=== PATIENT | female | born 1955 | race Caucasian/White ===

== ENCOUNTER → 2024-04-05 17:58 | Outpatient (REF) | payer OTHER, SELFPAY | LOC: WDC 17:58 | PROVIDERS: ATTENDING PHYSICIAN Oral & Maxillofacial Surgery; FAMILY PHYSICIAN Family Medicine | DX: Z12.31 Encounter for screening mammogram for malignant neoplasm of breast (principal) | CPT/HCPCS: 77063; 77067 ==

== ENCOUNTER → 2024-10-06 07:08 | Outpatient (REF) | payer BC, SELFPAY | LOC: HWRAD 07:08 | PROVIDERS: ATTENDING PHYSICIAN Surgery; FAMILY PHYSICIAN Family Medicine | DX: R19.09 Other intra-abdominal and pelvic swelling, mass and lump (principal) | CPT/HCPCS: 76882 ==

== ENCOUNTER → 2025-04-12 17:13 | Outpatient (REF) | payer BC, SELFPAY | LOC: WDC 17:13 | PROVIDERS: ATTENDING PHYSICIAN Obstetrics & Gynecology; FAMILY PHYSICIAN Family Medicine | DX: Z12.31 Encounter for screening mammogram for malignant neoplasm of breast (principal) | CPT/HCPCS: 77063; 77067 ==

== ENCOUNTER 2025-06-11 11:39 | Emergency (ER) | payer BC, SELFPAY ==
[2025-06-11 11:40] VITALS: BP 176/89
[2025-06-11 11:58] VITALS: BP 134/65
[2025-06-11 12:00] VITALS: BP 130/76
--- NOTE | 2025-06-11 12:08 | ED.GENMED ---
History of Present Illness
General
Chief Complaint: Heart Rate Problem
Source: patient
Exam Limitations: none
Time Seen by Provider: 06/11/25 11:57
History of Present Illness
History of Present Illness:
69yoF with a history of hypertension and lichen planopilaris presenting for evaluation of palpitations. She reports feeling like her heart is skipping beats for the past week. The sensation makes her feel like she has to cough. Symptoms were
stronger today. She has a family history of heart attacks and atrial fibrillation and wanted to come to the ED to be evaluated. She is otherwise asymptomatic and denies any chest pain, shortness of breath, dizziness, syncope. No caffeine use and
she drinks alcohol occasionally. She reports being under extreme stress at work recently. She is a project internship at an engineering firm.
Phy Exam
General Physical Exam
General Presentation: well appearing and no apparent distress
General Skin: warm and dry
General Habitus: normal
General Mental: alert
ENT Exam
ENT Exam: normocephalic
Cardiovascular Exam
Cardiovascular Exam: regular rate/rhythm, no edema and no murmur
Pulmonary Exam
Pulmonary Exam: lungs clear, no respiratory distress, no rales, no crackles, no rhonchi and no wheezing
Neurological Exam
Neurological Exam: alert
Rina Coma Scale
Eye Opening: Spontaneous
Verbal Response: Oriented
Motor Response: Obeys Commands
GCS Total Score: 15
Skin Exam
Skin Exam: normal color and warm/dry
Psychiatric Exam
Psychiatric Exam: anxious
Course
Orders/Labs/Results
Orders:
Orders
06/11/25 11:43
EKG [Electrocardiogram (*1)] Urgent
Reason for Study: Palpitations
EKG- Treatment ONCE
06/11/25 12:07
Cardiac Monitoring- Treatment ONCE
Complete Blood Count/With Diff Urgent
Comprehensive Metabolic Panel Urgent
Magnesium Urgent
TSH Reflex To Free T4 Urgent
Troponin I Urgent
06/11/25 13:08
Add On- LAB Urgent
Tests Added?: TSH, reflex to T4
Abnormal Lab Results
06/11/25
12:07
Carbon Dioxide 32 H mmol/L
(22-30)
Glucose 108 H mg/dl
(70-99)
06/11/25 12:07
06/11/25 12:07
Vital Signs
Initial and Last Documented VS:
Initial Vital Signs
Temp Pulse Resp BP Pulse Ox
97.9 F 92 16 176/89 97
06/11/25 11:40 06/11/25 11:40 06/11/25 11:40 06/11/25 11:40 06/11/25 11:40
Last Documented Vital Signs
Temp Pulse Resp BP Pulse Ox
97.9 F 56 12 125/54 96
06/11/25 11:40 06/11/25 15:00 06/11/25 15:00 06/11/25 15:00 06/11/25 15:00
MDM/Problems Addressed
Differential Diagnosis Includes:
69yoF here with palpitations x 1 week. Feels like heart is skipping beats. Also under a lot of stress recently. No CP/SOB. She is hypertensive in triage with otherwise stable vitals. Scattered PACs noted on monitor during initial exam which are
correlating with her symptoms. Remainder of exam is reassuring. Differential diagnosis includes but is not limited to: PACs/PVCs, arrhythmia, thyroid dysfunction, electrolyte abnormality
Initial ED plan: Triage EKG shows NSR without ectopy or ischemic changes. Check cardiac labs, magnesium, and TSH.
*Pulse Oximetry
SaO2: 97
Oxygen Mode of Delivery: Room air
Patient hypoxic: no
*EKG
Interpreted by ED Provider?: Yes
EKG Intrepretation Date: 06/11/25
Heart Rate: 78
Rate: normal
Rhythm: sinus
[place]: normal axis
Interval: normal interval
QRS Pattern: normal QRS
Ischemia: no ischemia
*Critical Care Note
Total Time (30-74mins, 75-104mins- exclusive of procedures): Not Applicable
Update Note
Update Note:
Labs unremarkable including normal electrolytes, TSH, and troponin. No telemetry events throughout ED stay. On reassessment, patient states she is feeling significantly improved and palpitations have lessened. Normal sinus rhythm noted on monitor
with heart rate in the 50-60 range. Patient stable for discharge. Patient questioning whether she should see a case coordinator. Contact information for cardiology provided and she was also advised to follow-up with her PCP. Discussed possible need
for outpatient Holter monitor. ED return precautions reviewed and she was discharged stable condition.
ED Attending Note
-
Portions of this chart may have been created with voice recognition software.� Occasional wrong word or��sound alike� substitutions may have occurred due to the inherent limitations of voice recognition software.
Discharge Plan
Departure
Patient Disposition: Home (Routine Discharge)
Date of Disposition: 06/11/25
Time of Disposition: 14:43
Patient with high blood pressure during this ER visit?: No
Discharge Problem:
Palpitations, PAC (premature atrial contraction)
Instructions: Palpitations (DC)
Referrals:
Alma Delia Barnett DO [Active, Cardiology]
Suman Rabago MD [Family Provider, Family Practice]
Activity Restrictions/Additional Instructions:
Please call your family doctor on Friday to schedule a follow-up appointment and discuss outpatient Holter monitor. Contact information for a case coordinator is provided below.
Return to the ER with any new or worsening symptoms.
Interventions
Interventions:
*Risk Screen - Suicide Last Done: 06/11/25 12:06
*General Assessment Last Done: 06/11/25 11:40
*Neglect/Abuse Screening Last Done: 06/11/25 11:40
*ED COVID-19 Vaccine History Last Done: 06/11/25 11:40
*ED Influenza Vaccine History Last Done: 06/11/25 11:40
*Nursing Disposition Last Done: 06/11/25 15:18
ED- Cardiac Assessment Last Done: 06/11/25 12:05
ED- Pulmonary Assessment Last Done: 06/11/25 12:05
Discharge Date and Time
Discharge Date/Time: 06/11/25 15:21
Print Language: MACEDONIAN
[2025-06-11 12:13] VITALS: BMI 22.3
[2025-06-11 12:22] LABS: Hematocrit 44.3 % (37.0-47.0); Hemoglobin 15.1 g/dL (12.0-16.0); Mean Corp Hgb Conc. 34.1 g/dL (33.0-37.0); Mean Corpuscular Volume 87.9 fL (81.0-99.0); Nucleated Red Blood Cells % 0 %; Platelet Count 293 10^3/uL (130-400); Red Cell Dist. Width 12.4 % (11.5-14.5)
[2025-06-11 12:36] LABS: ALT (SGPT) 20 U/L (0-35); AST (SGOT) 24 U/L (14-36); Albumin 4.5 g/dl (3.5-5.0); Alkaline Phosphatase 62 U/L (38-126); Blood Urea Nitrogen 15 mg/dl (7-17); Calcium 9.6 mg/dl (8.4-10.2); Carbon Dioxide 32 mmol/L (22-30); Chloride 100 mmol/L (98-107); Estimated Creatinine Clearance 45 ml/min; Glucose 108 mg/dl (70-99); Magnesium 2.0 mg/dl (1.6-2.3); Potassium 4.4 mmol/L (3.5-5.1); Sodium 137 mmol/L (135-145); Total Protein 6.9 g/dl (6.3-8.2); eGFR > 60.00
[2025-06-11 12:46] LABS: Troponin I < 0.012 ng/ml
[2025-06-11 14:42] VITALS: BP 136/71
[2025-06-11 15:00] VITALS: BP 125/54
== END 2025-06-11 15:21 | disposition home or self-care (01) ==
LOC: EMR 11:39
PROVIDERS: Physician Assistant; EMERGENCY PHYSICIAN Emergency Medicine; FAMILY PHYSICIAN Family Medicine
DX: I49.1 Atrial premature depolarization (principal); I10 Essential (primary) hypertension; L66.10 Lichen planopilaris, unspecified; Z56.6 Other physical and mental strain related to work; Z82.49 Family history of ischemic heart disease and other diseases of the circulatory system
CPT/HCPCS: 99284; 80053; 83735; 84443; 84484; 85025; 93005